=== PATIENT | male | born 1960 | race Caucasian/White ===

== ENCOUNTER 2017-07-07 18:31 | Emergency (ER) | payer OTHER ==
[~2017-07-07] VITALS: Ht 175.3 cm; Wt 105.7 kg
[~2017-07-07 18:31] MED LIST: FLEXERIL PO; FLOMAX PO; LISINOPRIL5 MG PO; MEDROLDOSEPACK PO; NORCO 5-325 TA1 EACH PO; NORCO 7.5-3251 EACH PO; PERCOCET 5-3251 EACH PO; ZOCOR 10 MG TAB10 MG PO
[2017-07-07] MEDS ORDERED: COZAAR 50 MG TA50 M2 PO (18:57)
[2017-07-07] MEDS ORDERED: FENOFIBRATE160 MG PO (18:57)
[2017-07-07] MEDS ORDERED: NORCO 5-325 TA1 EACH PO (20:07)
[2017-07-07] MEDS ORDERED: MOBIC15 MG PO (20:07)
[2017-07-07 20:18] VITALS: BP 120/85
[2017-07-07] MEDS ORDERED: NAPROSYN500 MG PO (20:23)
== END 2017-07-07 20:27 | disposition home or self-care (01) ==
LOC: ER 18:31
DX: S76.112A Strain of left quadriceps muscle, fascia and tendon, initial encounter (principal); M25.511 Pain in right shoulder; I10 Essential (primary) hypertension; E78.00 Pure hypercholesterolemia, unspecified; F17.210 Nicotine dependence, cigarettes, uncomplicated; Z98.890 Other specified postprocedural states; W10.8XXA Fall (on) (from) other stairs and steps, initial encounter; Y93.89 Activity, other specified; Y92.89 Other specified places as the place of occurrence of the external cause; Y99.8 Other external cause status

== ENCOUNTER 2018-02-12 15:13 | Emergency (ER) | payer OTHER ==
[~2018-02-12] VITALS: Ht 175.3 cm; Wt 97.5 kg
[~2018-02-12 15:13] MED LIST changes: +COZAAR 50 MG TA50 M2 PO; +FENOFIBRATE160 MG PO; +MOBIC15 MG PO; +NAPROSYN500 MG PO
[2018-02-12] MEDS ORDERED: NEURONTIN 300M300 M2 PO (15:30)
[2018-02-12] MEDS ORDERED: COZAAR 50 MG TA50 M2 PO (15:30)
[2018-02-12] MEDS ORDERED: FENOFIBRATE160 MG PO (15:30)
[2018-02-12] MEDS ORDERED: ZANAFLEX4 MG PO (15:30)
[2018-02-12] MEDS ORDERED: ZYBAN150 MG PO (15:31)
[2018-02-12] MEDS ORDERED: HYDROCODONE-AP1 EAC6 PO (17:11)
[2018-02-12 17:49] VITALS: BP 122/72
== END 2018-02-12 17:49 | disposition home or self-care (01) ==
LOC: ER 15:13
DX: M25.561 Pain in right knee (principal); M54.9 Dorsalgia, unspecified; I10 Essential (primary) hypertension; E78.00 Pure hypercholesterolemia, unspecified; F17.210 Nicotine dependence, cigarettes, uncomplicated